=== PATIENT | female | born 1935 | race Caucasian/White ===

== ENCOUNTER → 2016-08-31 | Outpatient (CLI) | payer MEDICARE, MEDICAID ==
[~2016-08-31] MED LIST: ASPI300S4 PR; NOR5T PO
[2016-08-31 12:24] LABS: Basophils # (auto) 0 uL; Basophils % (auto) 0.7 % (0.0-2.0); Eosinophils # (auto) 0.1 uL; Hematocrit 40.3 % (36.0-46.0); Hemoglobin 13.1 g/dL (12.2-16.2); Lymphocytes # (auto) 2.4 uL; Lymphocytes % (auto) 38.1 % (10.0-50.0); Mean Corpuscular Hemoglobin 32.5 pg (28.0-32.0); Mean Corpuscular Hgb Conc. 32.5 g/dL (32.0-36.0); Mean Corpuscular Volume 100.2 fL (80.0-100.0); Mean Platelet Volume 7.6 fL (7.4-10.4); Monocytes # (auto) 0.7 uL; Monocytes % (auto) 10.8 % (0.0-12.0); Neutrophils # (auto) 3.1 uL; Neutrophils % (auto) 49.4 % (37.0-80.0); Platelet Count (auto) 372 10^3/uL (140-450); Red Cell Distribution Width 13.8 % (11.6-16.0); White Blood Cell 6.2 10^3/uL (4.4-10.8)
[2016-08-31 13:07] LABS: Albumin 4.5 g/dL (3.4-5.0); BUN/Creatinine Ratio 16.7; Bilirubin, Total 0.5 mg/dL (0.2-1.0); Calcium 8.8 mg/dL (8.5-10.1); Potassium 4.1 mmol/L (3.5-5.1); Total Protein 7.7 g/dL (6.4-8.2)
== END | disposition home or self-care (01) ==
LOC: LAB 11:14
DX: D64.9 Anemia, unspecified (principal); I10 Essential (primary) hypertension; M25.50 Pain in unspecified joint; M06.9 Rheumatoid arthritis, unspecified
CPT/HCPCS: 36415; 80053; 85025; 85049; 85652; 86141

== ENCOUNTER 2016-11-26 21:26 | Emergency (ER) | payer MEDICARE, MEDICAID ==
[~2016-11-26] VITALS: Ht 162.6 cm; Wt 60.4 kg
[2016-11-27 00:16] VITALS: BP 169/62
[2016-11-27] MEDS ORDERED: KETOROLAC TROMETH 30 MG/ML 1ML VIAL IV ONE (00:45)
[2016-11-27] MEDS ORDERED: KETOROLAC TROMETH 30 MG/ML 1ML VIAL IM ONE (01:00)
== END 2016-11-27 01:00 | disposition home or self-care (01) ==
LOC: ER 21:33
DX: S61.451A Open bite of right hand, initial encounter (principal); E11.9 Type 2 diabetes mellitus without complications; I10 Essential (primary) hypertension; M19.90 Unspecified osteoarthritis, unspecified site; W54.0XXA Bitten by dog, initial encounter; Y93.89 Activity, other specified; Y92.89 Other specified places as the place of occurrence of the external cause; Y99.8 Other external cause status; Z79.82 Long term (current) use of aspirin; E78.00 Pure hypercholesterolemia, unspecified
CPT/HCPCS: 96374; 99284; J1885